=== PATIENT | male | born 1995 | race Caucasian/White ===

== ENCOUNTER 2017-06-27 12:38 | Emergency (ER) | payer OTHER ==
[2017-06-27] MEDS ORDERED: NS 1,000 ML IV ONE ×3 (12:53→15:02)
[2017-06-27] MEDS ORDERED: ONDANSETRON 4 MG/2 ML VIAL IVP ONE ×2 (12:56→19:17)
--- NOTE | 2017-06-27 12:57 | EDPHY ---
HPI/HX/ROS/PE/MDM - Data Points Imaging: Discussed imaging studies w/ charge account clerk Radiologist, I viewed and interpreted images myself Narrative: CHIEF COMPLAINT: Vomiting HPI: The patient is a 21-year-old male with no significant past medical history. He is visiting from [place]. Approximately 24 hr ago he developed severe nausea and vomiting. He denies any diarrhea or stool changes. No abdominal pain other than some soreness from vomiting copiously. He denies blood in emesis. He denies fever. No unusual foods. No known contacts with similar symptoms. No headache or neck stiffness. REVIEW OF SYSTEMS: Aside from elements discussed in the HPI, a comprehensive 10-point review of systems was reviewed and is negative. PMH: None significant. SOCIAL HISTORY: Single. Denies alcohol abuse. PHYSICAL EXAM: General:Patient is alert, in no acute distress. He is well-appearing. ENT:Eyes are normal to inspection. ENT inspection normal. Mildly dry mucous membranes. Neck: Normal inspection. Full range of motion. No meningismus. Respiratory:No respiratory distress. Breath sounds normal bilaterally. Cardiovascular: Regular rate and rhythm. Strong peripheral pulses. Normal cap refill. Abdomen:The abdomen is nontender to palpation. There are no peritoneal signs. There are normal bowel sounds. Back: Normal to inspection. No tenderness to palpation. Skin: Normal color. No rash. Warm and dry. Extremities: Normal appearance. Full range of motion. Neuro: Oriented x3. Normal motor function. Normal sensory function. (Robert Barton) ED Course: I took over care of this patient at 8:00 p.m.. This patient is here for nausea and vomiting. He has been here for an extended period of time. He has had multiple antiemetic medications. He has been sleeping for the last hour. Plan at this time is an oral challenge. If he fails this he will be admitted. Dr. Barton is already discussed this case with the admitting hospitalist Dr. Lyons. The patient's blood work and imaging has been unremarkable except for findings consistent with Gilbert's syndrome of which he reports a family history. 8:50 p.m., patient re-evaluated. He has tolerated an oral food challenge which consists of some crackers and some water. Repeat abdominal exam is soft, nontender, nondistended. He feels comfortable going home at this time. I spoke with his mother who is a nurse. I will prescribe him Zofran as well as Phenergan. He will also receive take-home packs of these medications. Follow- up and return to emergency department precautions reviewed with him. All of his questions were answered. He was discharged to home with a sober ride. ( Trevin Howell) 21 y/o male presents with 24 hours of nausea and vomiting. Abdomen is benign on exam. Plan for laboratory studies including CBC, chemistries, lipase. IV established. Plan to administer 4mg IV Zofran and 1L IV NS for symptom relief. 14:18 Reassessed patient. He is still feeling nauseated. Plan to administer 25mg IV Benadryl and 10mg IV Reglan for further symptom relief. An additional 1L IVF is in progress. 14:45 Reassessed. Spoke with the patient's mother in [place] by phone who asked repeatedly whether this could be anxiety. I will treat patient with a dose of Ativan. Patient not actively vomiting. Abdomen benign. Labs normal. 15:06 Patient is now febrile at 38.6. Plan for additional laboratory studies including liver function panel, UA. Plan to administer 20mg IV Toradol for pain relief. Reviewed laboratory studies. Bilirubin elevated. Plan for US abdomen to evaluate appendix and biliary system. 17:[address] Lin, radiologist. Appendix not visualized on US. No acute abnormalities noted. 18:14 I discussed this case with the patient's mother again at patient's request. We reviewed patient's lab results and presentation. We specifically discussed the option of CTAP, which mother would prefer he not undergo. We agreed on a plan to continue to treat symptomatically and will admit if unable to significantly improve. Of note, the patient's mother reported family history positive for Gilbert's syndrome in the patient's brother, which I suspect is likely the cause of his elevated unconjugated bilirubin. I see no signs of active hemolysis. We discussed possibility of hospital admission if he does not improve and she expressed desire to avoid this if possible. 18:[address] Lin, radiologist. Normal US study of the gallbladder. 19:30: Patient vomited again, given dose of Zofran. I re-evaluated patient, who despite his symptoms, continues to look well. He denies any abdominal pain. He states he is not currently nauseated but says he is throwing up more "because I can. It feels like when my stomach is full I have the opportunity to throw up so I do. It's almost more psychological." The patient asked if he could eat some food. I explained that we normally like to slowly advance diet once patient can tolerate water but he would like to try. We agreed on a plan to perform a quick abdominal XR and re-evaluate after additional dose of Zofran has kicked in. 19:51 Reviewed abdominal x-ray. Negative for acute processes. Reassessed patient. He has not yet attempted his PO challenge. (Robert Barton) MDM: This is a young healthy male who presents with vomiting. The etiology of his symptoms is unclear but he developed a fever here in the ED which certainly suggests an infectious etiology. The patient is having no diarrhea and has been unable to provide us with a stool sample to rule out GI pathogen. His exam and normal WBC make appendicitis very unlikely, as does normal US. The patient has declined a CTAP to fully rule out serious abdominal pathology. He does not appear septic and there are no other focal symptoms to suggest HEART COORDINATOR or cardiopulmonary infection. Some elements of his exam certainly suggest a cyclic vomiting component. The patient will be signed out to Dr. Howell pending ongoing PO challenge and re-evaluation. The patient may need admission for further observation and workup. (Robert Barton) - Data Points Imaging Results: Imaging Impressions Abdomen Ultrasound 06/27/17 16:37 Impression: Nondiagnostic assessment of the appendix. If there is further clinical concern regarding the patient's right lower quadrant pain, contrast-enhanced CT imaging could be considered. Findings were discussed with Robert Barton MD at 17:17, on 06/27/2017. Abdomen Ultrasound 06/27/17 17:19 Impression: Normal study. If there is further clinical concern regarding the patient's gallbladder and right-sided abdominal pain, a nuclear medicine hepatobiliary scan with gallbladder ejection fraction could be considered. Findings were discussed with Robert Barton MD at 18:41, on 06/27/2017. Abdomen X-Ray 06/27/17 19:38 Impression: Mild constipation, with otherwise nonspecific bowel gas pattern. Laboratory Results: Laboratory Results 06/27/17 13:05 06/27/17 13:05 06/27/17 06/27/17 06/27/17 17:10 13:05 13:05 WBC RBC Hgb Hct MCV MCH MCHC RDW Plt Count MPV Neut % (Auto) Lymph % (Auto) [place] % (Auto) Eos % (Auto) Baso % (Auto) Nucleat RBC Rel Count Absolute Neuts (auto) Absolute Lymphs (auto) Absolute Monos (auto) Absolute Eos (auto) Absolute Basos (auto) Absolute Nucleated RBC Immature Gran % Immature Gran # Sodium 142 mEq/L mEq/L (135-145) Potassium 3.9 mEq/L mEq/L (3.5-5.2) Chloride 100 mEq/L mEq/L (97-110) Carbon Dioxide 21 mEq/l L mEq/l (22-31) Anion Gap 21 mEq/L H mEq/L (8-16) BUN 20 mg/dL mg/dL (7-23) Creatinine 1.1 mg/dL mg/dL (0.7-1.3) Estimated GFR > 60 Glucose 135 mg/dL H mg/dL (70-100) Calcium 10.4 mg/dL mg/dL (8.5-10.4) Total Bilirubin 3.8 mg/dL H mg/dL (0.1-1.4) Conjugated Bilirubin 0.6 mg/dL H mg/dL (0.0-0.5) Unconjugated Bilirubin 3.2 mg/dL H mg/dL (0.0-1.1) AST 40 IU/L IU/L (17-59) ALT 30 IU/L IU/L (21-72) Alkaline Phosphatase 73 IU/L IU/L (38-126) Total Protein 8.6 g/dL H g/dL (6.3-8.2) Albumin 5.0 g/dL g/dL (3.5-5.0) Lipase 40 IU/L IU/L (23-300) Urine Color YELLOW Urine Appearance CLEAR Urine pH 6.0 (5.0-7.5) Ur Specific [place] 1.029 (1.002-1.030) Urine Protein NEGATIVE (NEGATIVE) Urine Ketones 1+ H (NEGATIVE) Urine Blood NEGATIVE (NEGATIVE) Urine Nitrate NEGATIVE (NEGATIVE) Urine Bilirubin NEGATIVE (NEGATIVE) Urine Urobilinogen 4.0 EU H EU (0.2-1.0) Ur Leukocyte Esterase NEGATIVE (NEGATIVE) Urine Glucose NEGATIVE (NEGATIVE) 06/27/17 13:05 WBC 7.93 10^3/uL 10^3/uL (3.80-9.50) RBC 5.24 10^6/uL 10^6/uL (4.40-6.38) Hgb 15.7 g/dL g/dL (13.7-17.5) Hct 44.4 % % (40.0-51.0) MCV 84.7 fL fL (81.5-99.8) MCH 30.0 pg pg (27.9-34.1) MCHC 35.4 g/dL g/dL (32.4-36.7) RDW 12.3 % % (11.5-15.2) Plt Count 194 10^3/uL 10^3/uL (150-400) MPV 10.9 fL fL (8.7-11.7) Neut % (Auto) 77.6 % H % (39.3-74.2) Lymph % (Auto) 14.8 % L % (15.0-45.0) [place] % (Auto) 7.2 % % (4.5-13.0) Eos % (Auto) 0.0 % L % (0.6-7.6) Baso % (Auto) 0.1 % L % (0.3-1.7) Nucleat RBC Rel Count 0.0 % % (0.0-0.2) Absolute Neuts (auto) 6.16 10^3/uL 10^3/uL (1.70-6.50) Absolute Lymphs (auto) 1.17 10^3/uL 10^3/uL (1.00-3.00) Absolute Monos (auto) 0.57 10^3/uL 10^3/uL (0.30-0.80) Absolute Eos (auto) 0.00 10^3/uL L 10^3/uL (0.03-0.40) Absolute Basos (auto) 0.01 10^3/uL L 10^3/uL (0.02-0.10) Absolute Nucleated RBC 0.00 10^3/uL 10^3/uL (0-0.01) Immature Gran % 0.3 % % (0.0-1.1) Immature Gran # 0.02 10^3/uL 10^3/uL (0.00-0.10) Sodium Potassium Chloride Carbon Dioxide Anion Gap BUN Creatinine Estimated GFR Glucose Calcium Total Bilirubin Conjugated Bilirubin Unconjugated Bilirubin AST ALT Alkaline Phosphatase Total Protein Albumin Lipase Urine Color Urine Appearance Urine pH Ur Specific [place] Urine Protein Urine Ketones Urine Blood Urine Nitrate Urine Bilirubin Urine Urobilinogen Ur Leukocyte Esterase Urine Glucose Medications Given: Discontinued Medications Diphenhydramine HCl (Benadryl Injection) 25 mg IVP EDNOW ONE Stop: 06/27/17 14:19 Last Admin: 06/27/17 14:28 Dose: 25 mg Sodium Chloride (Ns) 1,000 mls @ 0 mls/hr IV EDNOW ONE; Wide Open PRN Reason: Protocol Stop: 06/27/17 12:54 Last Admin: 06/27/17 13:03 Dose: 1,000 mls Sodium Chloride (Ns) 1,000 mls @ 0 mls/hr IV ONCE ONE PRN Reason: Wide Open Stop: 06/27/17 13:48 Last Admin: 06/27/17 13:48 Dose: 1,000 mls Sodium Chloride (Ns) 1,000 mls @ 0 mls/hr IV ONCE ONE PRN Reason: Wide Open Stop: 06/27/17 15:03 Last Admin: 06/27/17 15:05 Dose: 1,000 mls Ketorolac Tromethamine (Toradol) 30 mg IVP EDNOW ONE Stop: 06/27/17 15:10 Last Admin: 06/27/17 15:18 Dose: 30 mg Lorazepam (Ativan Injection) 1 mg IVP EDNOW ONE Stop: 06/27/17 14:51 Last Admin: 06/27/17 15:01 Dose: 1 mg Metoclopramide HCl (Reglan Injection) 10 mg IVP EDNOW ONE Stop: 06/27/17 14:19 Last Admin: 06/27/17 14:30 Dose: 10 mg Ondansetron HCl (Zofran) 4 mg IVP EDNOW ONE Stop: 06/27/17 12:57 Last Admin: 06/27/17 13:03 Dose: 4 mg Ondansetron HCl (Zofran) 4 mg IVP EDNOW ONE Stop: 06/27/17 19:18 Last Admin: 06/27/17 19:19 Dose: 4 mg Ondansetron HCl (Zofran Odt 4 Mg Prepack#2) 1 btl TAKEHOME EDNOW ONE Stop: 06/27/17 20:55 Last Admin: 06/27/17 21:01 Dose: 1 btl Promethazine HCl (Phenergan 25 Mg Prepack #4) 1 btl TAKEHOME EDNOW ONE Stop: 06/27/17 20:55 Last Admin: 06/27/17 21:00 Dose: 1 btl General Time Seen by Provider: 06/27/17 12:52 Initial Vital Signs: Initial Vital Signs Temperature (C) 37 C 06/27/17 12:41 Heart Rate 95 06/27/17 12:41 Respiratory Rate 18 06/27/17 12:41 Blood Pressure 141/75 H 06/27/17 12:41 O2 Sat (%) 98 06/27/17 12:41 O2 Delivery Mode Room Air Allergies/Adverse Reactions: No Known Allergies Allergy (Unverified 06/27/17 12:41) Home Medications: Medication Instructions Recorded Ondansetron Odt [Zofran Odt 4 mg 4 mg PO Q4PRN PRN #10 tab 06/27/17 (*)] Departure - Departure Disposition: Home, Routine, Self-Care Clinical Impression: Nausea & vomiting Condition: Good Instructions: Ondansetron (By mouth), Promethazine (Into the rectum), Acute Nausea and Vomiting (ED) Additional Instructions: 1. Follow up with your primary care provider in 1-2 days. 2. Stay well hydrated, drinking plenty of fluids. You may introduce bland foods as tolerated. 3. Take Zofran as prescribed as needed for nausea. 4. Return to the emergency department for fever, uncontrollable vomiting or diarrhea, severe abdominal pain, or other worsening of condition. Referrals: ANIVAL BRASHER [Other] - As per Instructions Prescriptions: Ondansetron Odt [Zofran Odt 4 mg (*)] 4 mg PO Q4PRN PRN #10 tab PRN Reason: For Nausea & Vomiting Report Scribed for: Robert Barton Report Scribed by: Magy Paige Date of Report: 06/27/17 Time of Report: 13:01 Physician Review and Approval Statement: Portions of this note were transcribed by an ED scribe. I personally performed the history, physical exam, and medical decision making; and confirm the accuracy of the information in the transcribed note.
[2017-06-27 13:15] LABS: PLATELET COUNT 194 10^3/uL (150-400)
[2017-06-27] MEDS ORDERED: METOCLOPRAMIDE 10 MG/2 ML VIAL IVP ONE (14:18)
[2017-06-27] MEDS ORDERED: LORazepam 2 MG/ML INJ IVP ONE (14:50)
[2017-06-27] MEDS ORDERED: KETOROLAC 30 MG/1 ML SDV IVP ONE (15:09)
[2017-06-27] MEDS ORDERED: ONDANSETRON 4 MG/2 ML VIAL ONE (19:18)
[2017-06-27] MEDS ORDERED: PROMETHAZINE 25 MG PREPACK #4 BTL TAKEHOME ONE (20:54)
[2017-06-27] MEDS ORDERED: ONDANSETRON 4MG PREPACK#2 BTL TAKEHOME ONE (20:54)
[2017-06-27 21:08] VITALS: BP 129/65
== END 2017-06-27 21:07 | disposition home or self-care (01) ==
DX: R11.2 Nausea with vomiting, unspecified (principal); E86.9 Volume depletion, unspecified
CPT/HCPCS: 96374; J1200; J1885; J2060; J2405; J2765